=== PATIENT | female | born 1950 | race Caucasian/White ===

== ENCOUNTER → 2021-07-21 11:06 | Outpatient (CLI) | payer OTHER, SELFPAY | PROVIDERS: Visit Provider Nurse Practitioner | DX: U07.1 COVID-19 (principal) | CPT/HCPCS: C9803; U0003; U0005 ==

== ENCOUNTER 2023-06-02 13:15 | Emergency (ER) | payer OTHER, SELFPAY ==
[2023-06-02 13:16] VITALS: BP 144/44; PULSE 63; RESP 16; TEMP 36.7; O2SAT 97; BMI 30.2
--- NOTE | 2023-06-02 13:24 | ECG_ITS ---
APPROVED REPORT Exam: Resting ECG HR:59 bpm ECG Measurements Heart Rate 59 AXES AK 233 P 66 QRSd 86 QRS 40 QT 409 T 51 QTc 409 Conclusion SINUS BRADYCARDIA WITH FIRST DEGREE AV BLOCK ABNORMAL ECG UNCONFIRMED REPORT Electronically signed by : Geovanni Uriarte MD 06/03/2023 09:57:06
--- NOTE | 2023-06-02 13:54 | XR_ITS ---
FINAL REPORT CLINICAL HISTORY: cough, SOA COMPARISON: None FINDINGS: Two views of the chest were obtained. The heart size and pulmonary vascularity are within normal limits. The mediastinum is normal. No acute pulmonary abnormality is identified. There is no pneumothorax. The bony thorax is intact. IMPRESSION: No active cardiopulmonary disease. Reviewed, Interpreted and Dictated by Rodrigo Sun III, MD Transcribed by Althea Radford Authenticated and [facility]
[2023-06-02 14:00] VITALS: BP 151/73; PULSE 61; RESP 14; O2SAT 98
[2023-06-02 14:01] LABS: Chloride 100 mmol/L (98-107); Sodium 134 mmol/L (136-145)
[2023-06-02 14:03] LABS: Basophils % 0.5 % (0.1-2.0); Eosinophils # 0.2 K/mm3 (0.0-0.4); Eosinophils % 2.8 % (0.1-12.0); Hematocrit 36.6 % (37.0-47.0); Hemoglobin 12.5 g/dL (12.2-16.2); Lymphocytes # 2.2 K/mm3 (0.7-4.5); Lymphocytes % 30.2 % (10-50); Mean Corpuscular HGB Conc 34.2 g/dL (31.8-35.4); Mean Corpuscular Hemoglobin 31.7 pg (27.0-31.2); Mean Corpuscular Volume 92.5 fl (81-99); Monocytes # 0.4 K/mm3 (0.1-1.0); Neutrophils # 4.5 K/mm3 (1.8-7.8); Neutrophils % 61.4 % (37.0-80.0); Platelet Count 238 K/mm3 (142-424); Red Blood Count 3.96 M/mm3 (4.20-5.40); Red Cell Distribution Width 13.2 % (11.5-17.5); White Blood Count 7.3 K/mm3 (4.8-10.8)
[2023-06-02 14:04] LABS: Alanine Aminotransferase 24 U/L (12-78); Alkaline Phosphatase 70 U/L (38-126); Aspartate Amino Transferase 36 U/L (14-36); Bilirubin,Total 0.6 mg/dl (0.2-1.3); Blood Urea Nitrogen 9 mg/dl (7-17); Estimated Glomerular Filt Rate 61 ml/min (>60); GFR (African American) 74 ML/MIN (>60)
[2023-06-02 14:05] LABS: Albumin Level 4.3 g/dl (3.5-5.0); Albumin/Globulin Ratio 1.5 (1.1-1.8); Calcium 8.8 mg/dl (8.4-10.2); Carbon Dioxide 29 mmol/L (22.0-30.0); Globulin 2.8 g/dL (1.3-3.2); Glucose 110 mg/dl (74-100); Total Protein,Serum 7.1 g/dl (6.3-8.2)
[2023-06-02 14:13] LABS: NT Pro Brain Natriuretic Pep. 155 pg/mL (0-125)
[2023-06-02 14:30] VITALS: BP 140/67; PULSE 58; RESP 18; O2SAT 96
[2023-06-02 15:01] VITALS: BP 171/73; PULSE 58; RESP 18; O2SAT 98
[2023-06-02 15:01] LABS: Coronavirus 19, PCR Not Detected (NotDetected); Influenza A, PCR Not Detected (NotDetected); Influenza B, PCR Not Detected (NotDetected)
--- NOTE | 2023-06-02 15:07 | HMH.EDGENADL ---
Discharge Plan Disposition Patient Disposition: Home, Self-Care Condition: Good Prescriptions Prescriptions: New fluticasone propionate [Flonase Allergy Relief] 50 mcg/actuation spray,suspension 1 spray intranasal DAILY Qty: 16 0RF Rx Instructions: administer into each nostril pantoprazole 40 mg tablet,delayed release (DR/EC) 40 mg PO DAILY Qty: 30 0RF cetirizine [Zyrtec] 10 mg tablet 10 mg PO DAILY Qty: 30 0RF Referrals Follow up/Referrals: Christoph Sher MD [Physician] - See instructions Brittani Rosa [Primary Care Provider] - See instructions Activity Restrictions/Add. Instructions Additional Instructions/Restrictions: You were evaluated in the emergency department today. It is possible that your cough is related to allergies versus acid reflux. It could also be a side effect of your lisinopril, but given your postnasal drip, I am going to provide you with medications to treat allergies to see if this improves your symptoms. I am also changing your stomach medication from Prilosec to pantoprazole. Please bead picker the prescription at the pharmacy and take as prescribed. Follow-up with your primary care provider over the next 3 days for reassessment. Return to the emergency department for new or worsening symptoms. Clinical Impressions Clinical Impression: Cough, Post-nasal drip Instructions Patient Instructions: DI for Cough -- Adult Discharge ED Provider: Nasra Brooks [facility] Adult HPI General Chief complaint: Shortness of Breath/Dyspnea Stated complaint: Congestion, SOA, cough Time Seen by Provider: 06/02/23 13:39 Mode of Arrival: Ambulatory Source of Information: Patient Limitations: No Limitations Description of Symptoms (Recalled from ER Triage Doc. by RN): c/o non stop non productive cough for a few weeks with some soa History of Present Illness HPI narrative: This patient is a 72-year-old female presenting to the emergency department for evaluation with concern for dry cough since February. She states that she has had nasal congestion with postnasal drip. She notes that she has been seen by her primary care provider multiple times and has had 3 courses of medications, with last course of Augmentin being completed approximately 2 weeks ago. She states that her symptoms will get better, but then they will return. She denies any recent fevers, chest pain, abdominal pain, nausea, vomiting, or other concerns, but she states that the cough does cause her to feel slightly short of air. No other concerns noted at this time. She denies any history of cardiopulmonary issues. Related Data Previous Rx's Medication Instructions Recorded cetirizine 10 mg tablet (Zyrtec) 10 mg PO DAILY #30 tabs 06/02/23 fluticasone propionate 50 1 spray intranasal DAILY #16 grams 06/02/23 mcg/actuation nasal spray,suspension (Flonase Allergy Relief) pantoprazole 40 mg tablet,delayed 40 mg PO DAILY #30 tabs 06/02/23 release Allergies Allergy/AdvReac Type Severity Reaction Status Date / Time No Known Allergies Allergy Verified 06/02/23 14:17 [facility] Disclaimer: The information contained in this section may have been updated after the patient was seen, as this information can be updated by other users. Social History Smoking Status: Never smoker alcohol intake: never current occupational status: retired Travel in the last 8 weeks: None ROS Obtained: Yes All systems reviewed & no additional complaints except as documented Physical Exam General General appearance: alert and in no apparent distress Head Head exam: atraumatic and normocephalic Eye Eye exam: Present normal appearance, PERRL and EOMI ENT ENT exam: Present normal oropharynx, mucous membranes moist, normal external ear exam and other (cobblestoning/postnasal drip; nasal congestion) Neck Neck exam: Present normal inspection, full ROM and trachea midlin
--- NOTE | 2023-06-02 15:30 | PC.NURSE ---
Pt ambulatory to bathroom and back to bed. No other needs voiced at this time.
[2023-06-02 16:12] LABS: Procalcitonin 0.045 ng/mL (0.0-2.0)
[2023-06-02 16:40] VITALS: BP 171/73; PULSE 58; RESP 18; TEMP 36.7
== END 2023-06-02 16:40 | disposition home or self-care (01) ==
PROVIDERS: Emergency Provider Emergency Medicine; PCP Family Medicine
DX: R06.02 Shortness of breath (principal); R05.9 Cough, unspecified; R09.82 Postnasal drip; R00.1 Bradycardia, unspecified; I44.0 Atrioventricular block, first degree
CPT/HCPCS: 71046; 80053; 83880; 84145; 85025; 87636; 93005; 99285

== ENCOUNTER 2025-03-04 10:49 | Outpatient (CLI) | payer OTHER, SELFPAY ==
--- OUTSIDE RECORDS SUMMARY | 2025-03-04 11:04 | XMS_ITS | Clinical Summary ---
Author Organization [facility] Address [address] [place] [address] Care Team Providers Care Vinyl Welder And Fabricator Name Role Phone Unavailable Primary Care Provider Unavailabl e Social History Tobacco Use Types Packs/Day Years Used Date Smoking Tobacco: Never Assessed Comments Unknown Sex and Gender Information Value Date Recorded Sex Assigned at Not on file Legal Sex Female 8:54 PM EDT Gender Identity Not on file Sexual Orientation Not on file Plan of Treatment Not on file
--- OUTSIDE RECORDS SUMMARY | 2025-03-04 11:04 | XMS_ITS | Encounter Summary ---
Author Organization Healthcare Address [address] [id number] Care Team Providers Care Land Surveyor Name Role Phone Milind Allen Unavailable Unavailable Mary Almeida DMD Unavailable Encounter Details Date Type Department Care Team ([facility] Contact Info) Description 01/31/2020 [facility] [address] [place] [address] Dental, Provider, [place] [address] Social History Tobacco Use Types Packs/Day Years Used Date Smoking Tobacco: Never Assessed Comments Unknown Sex and Gender Information Value Date Recorded Sex Assigned at Not on file Legal Sex Female 8:54 PM EDT Gender Identity Not on file Sexual Orientation Not on file documented as of this encounter Plan of Treatment Not on file documented as of this encounter Visit Diagnoses Not on filedocumented in this encounter Care Teams Land Surveyor Relationship Specialty Start Date End Date Mliind Allen [employer] Dental Student Dental Php Software Engineer 12/22/20 10/18/21 Mary Almeida DMD [address] [facility] [place] [address] Dentist Dental Php Software Engineer 12/22/20 documented as of this encounter
--- OUTSIDE RECORDS SUMMARY | 2025-03-04 11:04 | XMS_ITS | Clinical Summary ---
Author Organization [facility] Address [address] [place] [address] Care Team Providers Care Nitric Acid Plant Operator Name Role Phone Brittani Rosa MD Primary Care Provider + Allergies No known active allergies Medications azithromycin (ZITHROMAX Z-MIGUELANGEL) 250 MG tabletIndicatio ns:Bronchitis Take 2 tablets the first day, then 1 tablet daily for 4 days. 6 tablet 08/26/2016 Active benzonatate (TESSALON) 200 MG capsuleIndicati ons:Cough Take 1 capsule by mouth 3 (Three) Times a Day As Needed for cough. 30 capsule 08/26/2016 Active promethazine-de xtromethorphan (PROMETHAZINE-D M) 6.25-15 MG/5ML syrupIndication s:Cough Take 5 mL by mouth 4 (Four) Times a Day As Needed for cough. 240 mL 09/01/2016 Active Active Problems No known active problems Family History Medical History Relation Name Comments Breast cancer Neg Hx Ovarian cancer Neg Hx Social History Tobacco Use Types Packs/Day Years Used Date Smoking Tobacco: Never Abuse Screen Answer Date Recorded Unsafe at Home or Work/School Not on file Feels Threatened by Someone? Not on file 04/2023 Does Anyone Keep You from Co ntacting Others or Doint Things Outside the Home? Not on file 04/05/2023 Physical Sign of Abuse Present Not on file 1 Housing Stability Answer Date Recorded Current Living Arrangements Not on file 03/26 Potentially Unsafe Housing Conditions Not on sujey e 04/05/2023 Family and Community Support Answer Quincy e Recorded Help with Day-to-Day Activities Not on file 04/05/2023 Lonely or Isolated Not on file 04/05/2023 Employment Answer Date Recorded Do you want help finding or keeping work or a vangie b? Not on file 04/05/2023 Disabilities Answer Date Recorded Concentrating, Remembering, or Making Decisions Difficulty Not on file 04/05/2023 Doing Errands Independently Difficulty Not on fi le 04/05/2023 Education Answer Date Recorded Help with school or training? Not on file Preferred Language Not on file 04/05/2023 Comments No Sex and Gender Information Value Date Recorded Sex Assigned at Not on file Legal Sex Female 5:40 PM EST Gender Identity Not on file Sexual Orientation Not on file Last Filed Vital Signs Vital Sign Reading Time Taken Comments Blood Pressure - - Pulse 68 08/26/2016 5:52 PM EST Temperature 36.7 C (98.1 F) 08/26/2016 5:52 PM EST Respiratory Rate 16 08/26/2016 5:52 PM EST Oxygen Saturation 94% 08/26/2016 5:52 PM EST Inhaled Oxygen Concentration - - Weight 70 kg (154 lb 6.4 oz) 08/26/2016 5:52 PM EST Height 160 cm (5' 3 ) 08/26/2016 5:52 PM EST Body Mass Index 27.35 08/26/2016 5:52 PM EST Plan of Treatment Health Maintenance Due Date Last Done Comments ANNUAL PHYSICAL 1950 DXA SCAN 1950 HEPATITIS C SCREENING 1950 TDAP/TD VACCINES (1 - Tdap) 1968 COLOGUARD 1994 COLON CANCER SCREENING 5 YEA R SIGMOIDOSCOPY 1994 COLONOSCOPY 1994 [address]AL CANCER SCREENING 1994 CT COLONOGRAPHY 1994 FECAL OCCULT BLOOD TEST 1994 FIT Testing (1 year) 1994 ZOSTER VACCINE (2 of 3) 08/21/2012 06/26/2012 RSV Vaccine - Adults (1 - 1- dose 75+ series) 2024 COVID-19 Vaccine ( - 2023-2 5 season) 2025 INFLUENZA VACCINE 03/26/2025 04/29/2019, , 05/22/2017, Additional history exists Pneumococcal Vaccine 50+ Completed 04/22/2016, 06/2014 MAMMOGRAM Discontinued 05/07/2019, 03/28, 10/12/2017, Additional history exists Procedures Procedure Name Priority Date/Time Associated Diagnosis Comments MAMMO SCREENING DIGITAL TOMOSYNTHESIS BILATERAL W CAD Routine 05/07/2019 1:33 PM EST Visit for screening mammogram from Last 3 Months or Most Recently Relevant to Health Maintenance Results * Mammo Screening Digital Tomosynthesis Bilateral With CAD (05/07/2019 1:33 PM EST) Anatomical Region Laterality Modality Breast N/A Mammography 05/07/2019 2:18 PM EST Impressions 05/07/2019 2:18 PM EST Negative bilateral mammogram. RECOMMENDATION: Continue annual screening mammography. BI-RADS CATEGORY 1, NEGATIVE. CAD was utilized. The standard false-negative rate of mammography is between 10% and 25%. Complex patterns or increased breast density will markedly elevate the false-negative rate of mammography. A letter, in lay terminology, with the results of this exam will be mailed to the patient. This report was finalized on 05/07/2019 2:[address] Elin Milligan MD. Narrative 05/07/2019 2:18 PM EST HISTORY: Screening Mammography. Low dose full field digital breast tomosynthesis imaging was performed with 2D and 3D acquisitions consisting of bilateral CC and MLO views. Examination is compared to prior examination dating back to 10/08/2014. Examination is read in conjunction with computer aided detection. FINDINGS: There are scattered areas of fibroglandular density. No suspicious masses, microcalcifications or areas of architectural distortion are present. Brittani Rosa MD IMG MAMMOGRAPHY ORDERABL ES Final Result from Last 3 Months or Most Recently Relevant to Health Maintenance Insurance [facility]VANT[facility] Care Teams Nitric Acid Plant Operator Relationship Specialty Start Date End Date Brittani Rosa MD [address] [place] [id number] PCP - General Family Medicine 08/26/16
[2025-03-04 12:44] LABS: Hematocrit 36.8 % (37.0-47.0); Hemoglobin 11.8 g/dL (12.2-16.2); Mean Corpuscular HGB Conc 32.1 g/dL (31.8-35.4); Mean Corpuscular Hemoglobin 29.9 pg (27.0-31.2); Mean Corpuscular Volume 93.2 fl (81-99); Platelet Count 261 K/mm3 (142-424); Red Blood Count 3.95 M/mm3 (4.20-5.40); Red Cell Distribution Width-SD 42.5 fL; White Blood Count 5.6 K/mm3 (4.8-10.8)
[2025-03-04 12:45] LABS: Immature Granulocytes % 0.4 %; Nucleated Red Blood Cells % 0 %
[2025-03-04 12:57] LABS: Alanine Aminotransferase 16 U/L (12-78); Albumin Level 4.4 g/dl (3.5-5.0); Alkaline Phosphatase 56 U/L (38-126); Anion Gap 11.8 mEq/L (5-15); Aspartate Amino Transferase 30 U/L (14-36); Bilirubin,Direct 0.1 mg/dl (0.0-0.4); Bilirubin,Indirect 0.7 mg/dL (0.0-0.9); Bilirubin,Total 0.8 mg/dl (0.2-1.3); Bilirubin,Unconjugated 0.7 mg/dL (0.0-1.1); Blood Urea Nitrogen 14 mg/dl (7-17); Calcium 9.8 mg/dl (8.4-10.2); Carbon Dioxide 30 mmol/L (22.0-30.0); Chloride 102 mmol/L (98-107); Cholesterol 152 mg/dl (140-200); Creatinine,Serum 0.90 mg/dl (0.52-1.04); Estimated Glomerular Filt Rate 61 ml/min (>60); GFR (African American) 74 ML/MIN (>60); Glucose 79 mg/dl (74-100); HDL Cholesterol 44 mg/dl (40-60); Magnesium 1.9 mg/dl (1.6-2.3); Potassium 4.8 mmoL/L (3.5-5.1); Sodium 139 mmol/L (136-145); Total Protein,Serum 6.7 g/dl (6.3-8.2); Triglycerides 129 mg/dl (30-150)
[2025-03-04 13:14] LABS: Free T4 (Free Thyroxine) 0.99 ng/dl (0.78-2.19)
[2025-03-04 13:29] LABS: Thyroid Stimulating Hormone 1.00 uIU/mL (0.465-4.68)
== END 2025-03-04 23:59 | disposition home or self-care (01) ==
LOC: LAB 10:51
PROVIDERS: PCP Family Medicine; Visit Provider Nurse Practitioner
DX: R06.09 Other forms of dyspnea (principal); R00.2 Palpitations; R00.1 Bradycardia, unspecified
CPT/HCPCS: 36415; 80048; 80061; 80076; 83735; 84439; 84443; 85025; 93225; 93227

== ENCOUNTER 2025-03-13 13:18 | Outpatient (CLI) | payer OTHER, SELFPAY ==
--- OUTSIDE RECORDS SUMMARY | 2025-03-13 13:21 | XMS_ITS | Encounter Summary ---
Author Organization Healthcare Address [address] [place] [address] Care Team Providers Care Mobile Ui Developer Name Role Phone Milind Allen Unavailable Unavailable Mary Almeida DMD Unavailable Encounter Details Date Type Department Care Team ([facility] Contact Info) Description 01/31/2020 [facility] [address] [place] [address] Dental, Provider, DDS [facility] [place] [address] Social History Tobacco Use Types [...] on filedocumented in this encounter Care Teams Mobile Ui Developer Relationship Specialty Start Date End Date Milind Allen [employer] Dental Student Dental Journeyman Tool And Die Maker 12/22/20 10/18/21 Mary Almeida DMD [address] [facility] [place] [address] Dentist Dental Journeyman Tool And Die Maker 12/22/20 documented as of this encounter
--- OUTSIDE RECORDS SUMMARY | 2025-03-13 13:21 | XMS_ITS | Clinical Summary ---
[facility] Organization [facility] Address [address] [place] [address] Care Team Providers Care Account Manager Trainee Name Role Phone Brittani Rosa MD Primary [...] Most Recently Relevant to Health Maintenance Insurance [facility] MEDICARE ADVANTAGE Care Teams Account Manager Trainee Relationship Specialty Start Date End Date Brittani Rosa MD [address] [place] [id number] PCP - General Family Medicine 08/26/16
--- OUTSIDE RECORDS SUMMARY | 2025-03-13 13:21 | XMS_ITS | Clinical Summary ---
Author Organization [facility] Address [address] [place] [address] Care Team Providers Care Filter Tank Tender Helper Head Name Role Phone Unavailable Primary Care Provider [...]
--- NOTE | 2025-03-13 13:45 | CA_ITS ---
APPROVED REPORT EXAM: Comprehensive 2D, Doppler, and color-flow Echocardiogram Hydrostatic Tester: Елена Holder CRT Ht: 5 ft 2 in Wt: 165lbs BSA: 1.76 BP: 131/65 mmHg Indications: Shortness of Breath, Palpitations, Bradycardia 2D Dimensions Left Atrium 3.66 cm LA Volume 65.20 mL RVID Base (AP4) 3.99 cm (M/F) 2.5-4.1 LA Volume Index 37.00 mL/m2 (M/F) 16-34 LVOT 1.49 cm (M/F) 1.5-2.5 EF AP4 55.60 % GL Strain -22.1 % M-Mode Dimensions RVDd 2.67 cm (0.9-2.6) LVDd 4.34 cm (3.5-5.7) Ao Diam 3.34 cm (2.0-3.7) LVDs 3.10 cm (3.5-5.7) IVSd 1.46 cm (0.6-1.1) PWd 0.75 cm (0.6-1.1) EF (Teich) 55.40% FS 28.60% EDV (Teich) 84.90 mL TAPSE 1.97 (<1.7) ESV (Teich) 37.90 mL LV Diastology MED E' 5.7 (>= 7 cm/sec) MED A' 6.90 cm/s LAT E' 7.7 (>= 10 cm/sec) LAT A' 12.90 cm/s Aortic Valve LVOT Max 124.0 (70-110 cm/s) ANAIS Index 0.81 cm2/m2 LVOT VTI 29.12 cm AoV Peak Jani. 157.0 (50-130 cm/s) AI PHT 613.00 ms AO Peak GR. 11.40 mmHg AO Mean GR. 5.40 (<5 mmHg) AO VTI 35.4 (18-25 cm) ANAIS (VTI) 1.43 (2.5-4.5 cm2) Tricuspid Valve TR P. Velocity 244.00 cm/s RAP Estimate 10.00 mmHg RVSP 33.80 mmHg Left Ventricle The left ventricle is normal size. Left ventricular systolic function is normal. The left ventricular ejection fraction is within the normal range. There is increased left ventricular wall thickness. There is normal LV segmental wall motion. The left ventricular diastolic function is indeterminate. LVEF is 55% Right Ventricle The right ventricle is mildly dilated. The right ventricular systolic function is normal. Atria The left atrium is mildly dilated. The right atrium is mildly dilated. There is no color Doppler evidence of interatrial shunt. Aortic Valve The aortic valve is mildly thickened. There is no hemodynamically significant aortic valvular stenosis. Mild to moderate aortic regurgitation is present. Mitral Valve The mitral valve is mildly thickened. No evidence of mitral valve stenosis. Mild mitral regurgitation is present. Tricuspid Valve The tricuspid valve leaflets are thin and pliable. Mild tricuspid regurgitation. RVSP is 20-25 mmHg. Pulmonic Valve The pulmonary valve is grossly normal in structure. Mild pulmonic valve regurgitation is present. Great Vessels The aortic root is normal in size. IVC is normal in size and collapses >50% with inspiration. Pericardium There is no pericardial effusion. Other Information Study Quality: Fair Conclusion Normal biventricular systolic function. Mild RV dilation. Mild biatrial dilation. Mild to moderate AI. Mild MR, mild TR, mild PI. Electronically signed by : Stephanie Lamar MD 03/16/2025 16:31:00
== END 2025-03-13 23:59 | disposition home or self-care (01) ==
LOC: RT 13:19
PROVIDERS: PCP Family Medicine; Visit Provider Nurse Practitioner
DX: I08.8 Other rheumatic multiple valve diseases (principal); R00.1 Bradycardia, unspecified
CPT/HCPCS: 93306